=== PATIENT | female | born 1985 ===

== ENCOUNTER → 2016-07-12 | Outpatient (CLI) | payer MEDICAID ==
[~2016-07-12] MED LIST: MOTRIN-DPS800 MG PO; PRENATAL VIT1 TAB PO
== END | disposition home or self-care (01) ==
LOC: RAD.S 07-05 11:00
DX: Z36 Encounter for antenatal screening of mother (principal); Z3A.22 22 weeks gestation of pregnancy

== ENCOUNTER 2016-09-22 13:30 | Outpatient (CLI) | payer MEDICAID ==
[~2016-09-22 13:30] MED LIST changes: -PRENATAL VIT1 TAB PO
[2016-10-17] MEDS ORDERED: PRENATAL VIT1 TAB PO (06:52)
== END 2016-09-22 16:00 | disposition home or self-care (01) ==
LOC: BC 13:30 → 2LDRP 13:30 → BC 16:00 → 2LDRP 16:00
DX: O99.89 Other specified diseases and conditions complicating pregnancy, childbirth and the puerperium (principal); R10.9 Unspecified abdominal pain; M54.9 Dorsalgia, unspecified; Z3A.33 33 weeks gestation of pregnancy

== ENCOUNTER → 2016-10-09 | Outpatient (CLI) | payer MEDICAID ==
[~2016-10-09] MED LIST changes: +PRENATAL VIT1 TAB PO
== END | disposition home or self-care (01) ==
LOC: RAD.S 18:30
DX: O26.843 Uterine size-date discrepancy, third trimester (principal); O99.89 Other specified diseases and conditions complicating pregnancy, childbirth and the puerperium; R10.9 Unspecified abdominal pain; Z3A.34 34 weeks gestation of pregnancy